=== PATIENT | male | born 1990 | race Caucasian/White ===

== ENCOUNTER 2017-09-27 00:06 | Emergency (ER) | payer BC, OTHER ==
[~2017-09-27] VITALS: Ht 170.2 cm; Wt 81.8 kg
[2017-09-27 00:06] VITALS: BP 139/82
[2017-09-27] MEDS ORDERED: ZITHTAB PO (01:37)
== END 2017-09-27 01:55 | disposition home or self-care (01) ==
LOC: M ED 00:06
DX: J02.9 Acute pharyngitis, unspecified (principal); Z88.0 Allergy status to penicillin

== ENCOUNTER 2017-09-28 02:41 | Emergency (ER) | payer BC ==
[~2017-09-28] VITALS: Ht 170.2 cm; Wt 81.8 kg
[~2017-09-28 02:41] MED LIST: ZITHTAB PO
[2017-09-28 02:42] VITALS: BP 133/91
== END 2017-09-28 03:23 | disposition left against medical advice (07) ==
LOC: M ED 02:41
DX: Z53.21 Procedure and treatment not carried out due to patient leaving prior to being seen by health care provider (principal)

== ENCOUNTER 2017-12-04 23:45 | Emergency (ER) | payer BC ==
[2017-12-05] MEDS: NORCO 5/325MG TABLET (BULK FOR ED) PO (00:08)
== END 2017-12-05 00:19 | disposition home or self-care (01) ==
LOC: M ED 23:45
DX: D10.0 Benign neoplasm of lip (principal); F17.210 Nicotine dependence, cigarettes, uncomplicated; Z88.0 Allergy status to penicillin
CPT/HCPCS: 99283

== ENCOUNTER 2017-12-05 05:45 | Inpatient (IN) | payer BC ==
[2017-12-05] MEDS ORDERED: METAL LOCK LOOP XX (06:10)
[2017-12-05 06:27] LABS: HEMATOCRIT 45.2 % (42.0-52.0); HEMOGLOBIN 15.5 g/dl (14.0-18.0); MEAN CORPUSCULAR HEMOGLOBIN 30.5 pg (27.0-33.0); MEAN CORPUSCULAR HGB CONC 34.3 g/dl (32.0-36.5); MEAN CORPUSCULAR VOLUME 88.8 fl (80.0-96.0); PLATELET COUNT, AUTOMATED 233 10^3/uL (150-450); RED BLOOD COUNT 5.09 10^6/uL (4.30-6.10); RED CELL DISTRIBUTION WIDTH 12.3 % (11.5-14.5); WHITE BLOOD COUNT 12.1 10^3/uL (4.0-10.0)
[2017-12-05 06:55] LABS: AMPHETAMINES LEVEL URINE NEGATIVE (NEGATIVE); BARBITURATES URINE NEGATIVE (NEGATIVE); BENZODIAZEPINES URINE NEGATIVE (NEGATIVE); CANNABINOIDS URINE POSITIVE (NEGATIVE); COCAINE METABOLITE URINE NEGATIVE (NEGATIVE); METHADONE URINE NEGATIVE (NEGATIVE); OPIATES URINE POSITIVE (NEGATIVE); PHENCYCLIDINE URINE NEGATIVE (NEGATIVE)
[2017-12-05 07:06] LABS: ACETAMINOPHEN LEVEL 10.5 UG/ML (10.0-30.0); ALBUMIN 4.2 GM/DL (3.2-5.2); ALBUMIN/GLOBULIN RATIO 1.45 (1.00-1.93); ALKALINE PHOSPHATASE 72 U/L (45-117); ALT/SGPT 33 U/L (12-78); ANION GAP 7 MEQ/L (8-16); AST/SGOT 20 U/L (7-37); BILIRUBIN,DIRECT 0.1 MG/DL (0.0-0.2); BILIRUBIN,TOTAL 0.4 MG/DL (0.2-1.0); BLOOD UREA NITROGEN 16 MG/DL (7-18); CALCIUM LEVEL 8.9 MG/DL (8.5-10.1); CARBON DIOXIDE LEVEL 29 MEQ/L (21-32); CHLORIDE LEVEL 105 MEQ/L (98-107); CREATININE FOR GFR 0.87 MG/DL (0.70-1.30); ETHYL ALCOHOL (ETHANOL) < 0.003 % (0.000-0.010); GLOMERULAR FILTRATION RATE > 60.0 (>60); GLUCOSE, FASTING 105 MG/DL (70-100); POTASSIUM SERUM 3.9 MEQ/L (3.5-5.1); SALICYLATE LEVEL < 1.7 MG/DL (5.0-30.0); SODIUM LEVEL 141 MEQ/L (136-145); TOTAL PROTEIN 7.1 GM/DL (6.4-8.2)
[2017-12-05] MEDS ORDERED: MOM 30ML SUSPENSION UDC PO (08:00)
[2017-12-05] MEDS ORDERED: MAALOX 30 ML SUSP *UDC PO (08:00)
[2017-12-05] MEDS: NICOTINE 21MG/24HR 1 EA TRANSDERMAL TD (08:45)
[2017-12-05] MEDS: PERCOCET 5MG/325MG TAB PO (08:52)
[2017-12-05] MEDS: ACETAMINOPHEN TAB 650MG DOSE (2X325MG) PO ×2 (11:43→20:43)
[2017-12-05] MEDS: traZODone 50 MG TAB PO (20:43)
[2017-12-06] MEDS: ACETAMINOPHEN TAB 650MG DOSE (2X325MG) PO (08:06)
[2017-12-06] MEDS: NICOTINE 21MG/24HR 1 EA TRANSDERMAL TD (08:06)
[2017-12-06] MEDS: QUEtiapine FUMARATE 12.5 MG HALF-TAB PO (12:24)
[2017-12-06] MEDS: SERTRALINE HCL 50 MG TAB PO (12:25)
[2017-12-06] MEDS: BENZOCAINE 7.5 % LIQ (BABY ORAJEL) TOP (12:25)
[2017-12-06] MEDS: hydrOXYzine 50 MG TAB PO (18:20)
[2017-12-06] MEDS: IBUPROFEN 600 MG TAB PO (21:32)
[2017-12-06] MEDS: traZODone 50 MG TAB PO (21:32)
[2017-12-07] MEDS: SERTRALINE HCL 50 MG TAB PO (08:20)
[2017-12-07] MEDS: QUEtiapine FUMARATE 12.5 MG HALF-TAB PO (08:20)
[2017-12-07] MEDS: NICOTINE 21MG/24HR 1 EA TRANSDERMAL TD (08:21)
[2017-12-07] MEDS: hydrOXYzine 50 MG TAB PO (12:02)
[2017-12-07] MEDS: traZODone 50 MG TAB PO (20:18)
[2017-12-08] MEDS: SERTRALINE HCL 50 MG TAB PO (08:20)
[2017-12-08] MEDS: QUEtiapine FUMARATE 12.5 MG HALF-TAB PO (08:20)
[2017-12-08] MEDS: NICOTINE 21MG/24HR 1 EA TRANSDERMAL TD (08:21)
[2017-12-08] MEDS: hydrOXYzine 25 MG TAB PO (16:20)
[2017-12-08] MEDS: traZODone 50 MG TAB PO (20:34)
[2017-12-08] MEDS: ACETAMINOPHEN TAB 650MG DOSE (2X325MG) PO (20:34)
[2017-12-09] MEDS: QUEtiapine FUMARATE 12.5 MG HALF-TAB PO (08:12)
[2017-12-09] MEDS: SERTRALINE HCL 50 MG TAB PO (08:12)
[2017-12-09] MEDS: NICOTINE 21MG/24HR 1 EA TRANSDERMAL TD (08:13)
[2017-12-09] MEDS: hydrOXYzine 25 MG TAB PO ×2 (16:49→22:04)
[2017-12-09] MEDS: traZODone 50 MG TAB PO (22:04)
[2017-12-10] MEDS: NICOTINE 21MG/24HR 1 EA TRANSDERMAL TD (08:10)
[2017-12-10] MEDS: QUEtiapine FUMARATE 12.5 MG HALF-TAB PO (08:10)
[2017-12-10] MEDS: hydrOXYzine 25 MG TAB PO (08:10)
[2017-12-10] MEDS: SERTRALINE HCL 50 MG TAB PO (08:10)
== END 2017-12-10 13:15 | disposition home or self-care (01) | DRG 753 ==
LOC: M ED 05:45 → M PSY 10:14
DX: F31.9 Bipolar disorder, unspecified (principal); F17.210 Nicotine dependence, cigarettes, uncomplicated; F43.10 Post-traumatic stress disorder, unspecified; F12.10 Cannabis abuse, uncomplicated; K13.0 Diseases of lips; Z62.810 Personal history of physical and sexual abuse in childhood; Z62.811 Personal history of psychological abuse in childhood; Z81.8 Family history of other mental and behavioral disorders; Z63.0 Problems in relationship with spouse or partner; Z91.5 Personal history of self-harm; Z88.0 Allergy status to penicillin

== ENCOUNTER 2018-07-02 23:55 | Inpatient (IN) | payer MEDICAID, BC, SELFPAY, OTHER ==
[2018-07-03 00:48] LABS: HEMOGLOBIN 16.6 g/dl (13.5-17.5); MEAN CORPUSCULAR HEMOGLOBIN 30.6 pg (27.0-33.0); MEAN CORPUSCULAR HGB CONC 34.6 g/dl (32.0-36.5); MEAN CORPUSCULAR VOLUME 88.4 fl (80.0-96.0); PLATELET COUNT, AUTOMATED 209 10^3/uL (150-450); RED BLOOD COUNT 5.43 10^6/uL (4.30-6.10); RED CELL DISTRIBUTION WIDTH 12.7 % (11.5-14.5); WHITE BLOOD COUNT 9.8 10^3/uL (4.0-10.0)
[2018-07-03 00:56] LABS: AMPHETAMINES LEVEL URINE NEGATIVE (NEGATIVE); BARBITURATES URINE NEGATIVE (NEGATIVE); BENZODIAZEPINES URINE NEGATIVE (NEGATIVE); CANNABINOIDS URINE POSITIVE (NEGATIVE); COCAINE METABOLITE URINE NEGATIVE (NEGATIVE); METHADONE URINE NEGATIVE (NEGATIVE); OPIATES URINE NEGATIVE (NEGATIVE); PHENCYCLIDINE URINE NEGATIVE (NEGATIVE)
[2018-07-03] MEDS: CHARCOAL ACTIVATED LIQUID 25 GM/120 ML BTL PO (00:57)
[2018-07-03] MEDS: NS 1,000 ML IV (00:57)
[2018-07-03 01:06] LABS: ALBUMIN 4.2 GM/DL (3.2-5.2); ALBUMIN/GLOBULIN RATIO 1.31 (1.00-1.93); ALKALINE PHOSPHATASE 78 U/L (45-117); ALT/SGPT 33 U/L (12-78); ANION GAP 8 MEQ/L (8-16); AST/SGOT 15 U/L (7-37); BILIRUBIN,DIRECT < 0.1 MG/DL (0.0-0.2); BILIRUBIN,TOTAL 0.4 MG/DL (0.2-1.0); BLOOD UREA NITROGEN 18 MG/DL (7-18); CALCIUM LEVEL 8.9 MG/DL (8.5-10.1); CARBON DIOXIDE LEVEL 26 MEQ/L (21-32); CHLORIDE LEVEL 108 MEQ/L (98-107); CREATININE FOR GFR 0.96 MG/DL (0.70-1.30); ETHYL ALCOHOL (ETHANOL) < 0.003 % (0.000-0.010); GLOMERULAR FILTRATION RATE > 60.0 (>60); GLUCOSE, FASTING 100 MG/DL (70-100); POTASSIUM SERUM 3.7 MEQ/L (3.5-5.1); SALICYLATE LEVEL 2.3 MG/DL (5.0-30.0); SODIUM LEVEL 142 MEQ/L (136-145); TOTAL PROTEIN 7.4 GM/DL (6.4-8.2)
[2018-07-03 01:10] LABS: ACETAMINOPHEN LEVEL < 2.0 UG/ML (10.0-30.0)
[2018-07-03] MEDS ORDERED: ACETAMINOPHEN TAB 650MG DOSE (2X325MG) PO (07:15)
[2018-07-03] MEDS ORDERED: hydrOXYzine 25 MG TAB PO (07:15)
[2018-07-03] MEDS ORDERED: MOM 30ML SUSPENSION UDC PO (07:15)
[2018-07-03] MEDS ORDERED: MAALOX 30 ML SUSP *UDC PO (07:15)
[2018-07-03] MEDS: QUEtiapine FUMARATE 12.5 MG HALF-TAB PO ×2 (09:51→21:00)
[2018-07-03] MEDS: SERTRALINE HCL 50 MG TAB PO (09:51)
[2018-07-04] MEDS: SERTRALINE HCL 50 MG TAB PO (08:17)
[2018-07-04] MEDS: NICOTINE 21MG/24HR 1 EA TRANSDERMAL TD (08:17)
[2018-07-04 11:17] LABS: FREE THYROXINE INDEX 2.7 % (1.4-3.8); T UPTAKE 34 % (33-40)
[2018-07-04] MEDS: QUEtiapine FUMARATE 12.5 MG HALF-TAB PO (20:06)
[2018-07-05] MEDS: traZODone 50 MG TAB PO ×2 (00:36→22:23)
[2018-07-05] MEDS: NICOTINE 21MG/24HR 1 EA TRANSDERMAL TD (08:02)
[2018-07-05] MEDS: SERTRALINE HCL 50 MG TAB PO (08:02)
[2018-07-05] MEDS: QUEtiapine FUMARATE 50 MG TAB PO (20:46)
[2018-07-06] MEDS: SERTRALINE HCL 50 MG TAB PO (08:12)
[2018-07-06] MEDS: NICOTINE 21MG/24HR 1 EA TRANSDERMAL TD (08:13)
[2018-07-06] MEDS: QUEtiapine FUMARATE 100 MG TAB PO (20:43)
[2018-07-07] MEDS: NICOTINE 21MG/24HR 1 EA TRANSDERMAL TD (08:18)
[2018-07-07] MEDS: SERTRALINE HCL 50 MG TAB PO (08:19)
== END 2018-07-07 16:30 | disposition home or self-care (01) | DRG 753 ==
LOC: M ED 23:55 → M ED INP 07-03 07:01 → M PSY 07-03 08:41
DX: F31.9 Bipolar disorder, unspecified (principal); F12.10 Cannabis abuse, uncomplicated; Z63.0 Problems in relationship with spouse or partner; Z62.810 Personal history of physical and sexual abuse in childhood; T43.592A Poisoning by other antipsychotics and neuroleptics, intentional self-harm, initial encounter; Y92.009 Unspecified place in unspecified non-institutional (private) residence as the place of occurrence of the external cause; F17.210 Nicotine dependence, cigarettes, uncomplicated; Z81.1 Family history of alcohol abuse and dependence; Z81.3 Family history of other psychoactive substance abuse and dependence; Z81.8 Family history of other mental and behavioral disorders; Z79.899 Other long term (current) drug therapy; Z88.0 Allergy status to penicillin; F43.10 Post-traumatic stress disorder, unspecified; Z65.3 Problems related to other legal circumstances

== ENCOUNTER 2018-10-19 15:19 | Emergency (ER) | payer MEDICAID, OTHER, SELFPAY ==
[~2018-10-19] VITALS: Ht 170.2 cm; Wt 75.0 kg
[2018-10-19 15:19] VITALS: BP 134/83
[~2018-10-19 15:19] MED LIST changes: +HYDR-3363 PO; +NICO21PAT TD; +OXYC1TAB23 PO; +QUET1TAB7 PO; +QUET1TAB8 PO; +SERT50TA PO; +TRAZ-160 PO; +TRAZO50TA PO
[2018-10-19] MEDS ORDERED: ACETAMINOPHEN 325 MG TAB PO ONE (18:15)
== END 2018-10-19 18:59 | disposition home or self-care (01) ==
LOC: M ED 15:19
DX: B34.9 Viral infection, unspecified (principal); F33.9 Major depressive disorder, recurrent, unspecified; F43.10 Post-traumatic stress disorder, unspecified; Z88.0 Allergy status to penicillin